=== PATIENT | male | born 2005 | race Two or more races ===

== ENCOUNTER 2024-04-07 22:25 | Emergency (ER) | payer OTHER ==
[~2024-04-07] VITALS: Ht 162.6 cm; Wt 63.5 kg
[2024-04-07 23:00] VITALS: TEMP 98.6
[2024-04-07 23:36] VITALS: BP 118/77; O2SAT 98
== END 2024-04-07 23:40 | disposition home or self-care (01) ==
LOC: ER 22:37
DX: F07.81 Postconcussional syndrome (principal); R51.9 Headache, unspecified
CPT/HCPCS: 70450-TC

== ENCOUNTER 2024-04-15 22:41 | Emergency (ER) | payer OTHER ==
[~2024-04-15] VITALS: Ht 182.9 cm; Wt 71.2 kg
[2024-04-15] MEDS ORDERED: IBUPROFEN 400 MG TABLET ONE (23:16)
[2024-04-15] MEDS: IBUPROFEN 400 MG TABLET PO ONE (23:19)
[2024-04-15 23:29] LABS: BASOPHILS % (AUTO) 0.6 % (0.0-2.0); EOSINOPHILS # (AUTO) 0.1 K/uL (0.0-0.7); EOSINOPHILS % (AUTO) 2.2 % (0.0-6.0); HEMATOCRIT 44 % (39-51); HEMOGLOBIN 14.9 g/dL (13.5-17.5); LYMPHOCYTES # (AUTO) 1.8 K/uL (0.8-4.8); LYMPHOCYTES % (AUTO) 30.9 % (20.0-44.0); MEAN CORPUSCULAR HEMOGLOBIN 30 PG (26.0-33.0); MEAN CORPUSCULAR HGB CONC 34 g/dl (31.0-36.0); MEAN CORPUSCULAR VOLUME 89 fL (80-96); MONOCYTES # (AUTO) 0.5 K/uL (0.1-1.30); NEUTROPHILS # (AUTO) 3.3 K/uL (1.8-8.9); NEUTROPHILS % (AUTO) 58.3 % (43.0-81.0); PLATELET COUNT (AUTO) 191 K/uL (150-450); RED BLOOD CELL COUNT(AUTO) 4.89 MIL/uL (4.5-6.0); WHITE BLOOD COUNT (AUTO) 5.7 K/uL (4.3-11.0)
[2024-04-15 23:59] LABS: D-DIMER < 0.19 mg/L(FEU (0.17-0.50); INR 0.99 (0.91-1.10); PARTIAL THROMBOPLASTIN TIME 29.7 SEC (24.3-34.3); PROTHROMBIN TIME 10.5 SECS (9.2-11.1)
[2024-04-16 00:04] LABS: CALCIUM, SERUM 8.9 mg/dL (8.5-10.1); CARBON DIOXIDE 27 mmol/L (21-32); CHLORIDE 106 mmol/L (98-107); CREATININE 0.7 mg/dL (0.6-1.3); GLUCOSE 97 mg/dL (74-106); SODIUM SERUM 142 mmol/L (136-145); UREA NITROGEN, BLOOD 16 mg/dL (7-18)
[2024-04-16 00:23] LABS: ALANINE AMINOTRANSFERASE 13 U/L (12-78); ALKALINE PHOSPHATASE 122 U/L (46-116); ASPARTATE AMINOTRANSFERASE 5 U/L (15-37); BILIRUBIN,DIRECT 0.2 mg/dL (0.0-0.2); TOTAL PROTEIN, SERUM 7.3 g/dL (6.4-8.2)
[2024-04-16 00:45] VITALS: BP 103/64; TEMP 98; O2SAT 100
== END 2024-04-16 00:46 | disposition home or self-care (01) ==
LOC: ER 22:50
DX: R07.9 Chest pain, unspecified (principal); Z88.8 Allergy status to other drugs, medicaments and biological substances; Z60.2 Problems related to living alone
CPT/HCPCS: 36415; 71045-TC; 80048-TC; 80076-TC; 84484-TC; 85025-TC; 85378-TC; 85730-TC

== ENCOUNTER 2024-09-17 07:23 | Inpatient (IN) | payer OTHER ==
[~2024-09-17] VITALS: Ht 182.9 cm; Wt 70.3 kg
[2024-09-17] MEDS ORDERED: ACETAMINOPHEN 325 MG TABLET ONE (07:52)
[2024-09-17] MEDS ORDERED: KETOROLAC TROMETHAMINE 15 MG/ML VIAL ONE (07:52)
[2024-09-17] MEDS: IV NS 0.9% 1,000 ML BAG IV ONE ×2 (08:04→11:11)
[2024-09-17] MEDS: KETOROLAC TROMETHAMINE 15 MG/ML VIAL IV ONE (08:06)
[2024-09-17] MEDS: ACETAMINOPHEN 325 MG TABLET PO ONE (08:06)
[2024-09-17 08:12] LABS: BASOPHILS % (AUTO) 0.4 % (0.0-2.0); EOSINOPHILS # (AUTO) 0.1 K/uL (0.0-0.7); EOSINOPHILS % (AUTO) 1.3 % (0.0-6.0); HEMATOCRIT 47 % (39-51); LYMPHOCYTES # (AUTO) 1.3 K/uL (0.8-4.8); LYMPHOCYTES % (AUTO) 20.4 % (20.0-44.0); MEAN CORPUSCULAR HEMOGLOBIN 30 PG (26.0-33.0); MEAN CORPUSCULAR HGB CONC 34 g/dl (31.0-36.0); MEAN CORPUSCULAR VOLUME 90 fL (80-96); MONOCYTES # (AUTO) 0.5 K/uL (0.1-1.30); MONOCYTES % (AUTO) 7.9 % (2.0-12.0); NEUTROPHILS # (AUTO) 4.6 K/uL (1.8-8.9); PLATELET COUNT (AUTO) 215 K/uL (150-450); RED BLOOD CELL COUNT(AUTO) 5.28 MIL/uL (4.5-6.0); RED CELL DISTRIBUTION WIDTH 13.5 % (11.5-15.0); WHITE BLOOD COUNT (AUTO) 6.5 K/uL (4.3-11.0)
[2024-09-17 08:29] LABS: CALCIUM, SERUM 9.1 mg/dL (8.5-10.1)
[2024-09-17 09:00] LABS: APPEARANCE,URINE CLEAR (CLEAR); BILIRUBIN,URINE NEGATIVE (NEGATIVE); BLOOD, URINE NEGATIVE Ery/uL (NEGATIVE); COLOR,URINE YELLOW (YELLOW); KETONES,URINE NEGATIVE (NEGATIVE); LEUKOCYTE ESTERASE ,URINE NEGATIVE (NEGATIVE); NITRITE, URINE NEGATIVE (NEGATIVE); PROTEIN,URINE NEGATIVE (NEGATIVE); UGLUCOSE NEGATIVE (NEGATIVE); UROBILINOGEN,URINE 0.2 EU/dL (0.2)
[2024-09-17] MEDS ORDERED: MAGNESIUM HYDROXIDE 30 ML UDC PO PRN (12:00)
[2024-09-17] MEDS ORDERED: ACETAMINOPHEN 325 MG TABLET PO PRN (12:00)
[2024-09-17] MEDS ORDERED: MAG HYDROX/AL HYDROX/SIMETH 30 ML UDC PO PRN (12:00)
[2024-09-17] MEDS ORDERED: ONDANSETRON HCL/PF 4 MG/2 ML VIAL IVP PRN (12:00)
[2024-09-17] MEDS ORDERED: Z GUARD REMEDY 4 OZ OINT TP PRN (12:00)
[2024-09-17] MEDS ORDERED: ZOLPIDEM TARTRATE 5 MG TABLET PO PRN (12:00)
[2024-09-17] MEDS ORDERED: ESCI20TA PO (12:29)
[2024-09-17 13:50] VITALS: BP 118/63; TEMP 96.8; O2SAT 98
[2024-09-17] MEDS: IV 1/2NS 1000 ML 1,000 ML IV PRN (15:40)
[2024-09-17 16:00] VITALS: BP 116/68; TEMP 97.4; O2SAT 98
[2024-09-17 20:00] VITALS: BP 131/67; TEMP 97.5; O2SAT 99
[2024-09-17 22:11] VITALS: BP 131/67; TEMP 97.5; O2SAT 99
[2024-09-18 07:41] LABS: BASOPHILS % (AUTO) 0.4 % (0.0-2.0); EOSINOPHILS # (AUTO) 0.1 K/uL (0.0-0.7); HEMATOCRIT 44 % (39-51); HEMOGLOBIN 14.8 g/dL (13.5-17.5); LYMPHOCYTES # (AUTO) 1.4 K/uL (0.8-4.8); LYMPHOCYTES % (AUTO) 26.2 % (20.0-44.0); MEAN CORPUSCULAR HEMOGLOBIN 30 PG (26.0-33.0); MEAN CORPUSCULAR HGB CONC 34 g/dl (31.0-36.0); MEAN CORPUSCULAR VOLUME 89 fL (80-96); MONOCYTES # (AUTO) 0.4 K/uL (0.1-1.30); MONOCYTES % (AUTO) 7.6 % (2.0-12.0); NEUTROPHILS # (AUTO) 3.4 K/uL (1.8-8.9); NEUTROPHILS % (AUTO) 63.8 % (43.0-81.0); PLATELET COUNT (AUTO) 205 K/uL (150-450); RED CELL DISTRIBUTION WIDTH 13.4 % (11.5-15.0); WHITE BLOOD COUNT (AUTO) 5.3 K/uL (4.3-11.0)
[2024-09-18 07:53] LABS: CALCIUM, SERUM 8.7 mg/dL (8.5-10.1); CREATININE 0.7 mg/dL (0.6-1.3); POTASSIUM 4.6 mmol/L (3.5-5.1)
[2024-09-18 08:00] VITALS: BP 109/70; TEMP 97.7; O2SAT 97
[2024-09-18] MEDS: ESCITALOPRAM OXALATE (10 MG) 10 MG TABLET PO SCH (08:54)
[2024-09-18] MEDS ORDERED: IV 1/2NS 1000 ML 1,000 ML IV PRN (10:53)
[2024-09-18] MEDS: IV NS 0.9% 1,000 ML IV ONE (11:18)
[2024-09-18] MEDS: IV NS 0.9% 1,000 ML IV PRN (12:35)
[2024-09-18 16:00] VITALS: BP 129/69; TEMP 97.9; O2SAT 100
[2024-09-18 20:00] VITALS: BP 125/67; TEMP 97.9; O2SAT 97
[2024-09-19 08:00] VITALS: BP 101/56; TEMP 97.5; O2SAT 99
[2024-09-19 16:00] VITALS: BP 127/68; TEMP 98.4; O2SAT 96
[2024-09-19 20:00] VITALS: BP 145/68; TEMP 97.3; O2SAT 98
[2024-09-20 07:30] VITALS: BP 114/69; TEMP 97.7; O2SAT 99
[2024-09-20 16:00] VITALS: BP 127/35; TEMP 98.1; O2SAT 100
[2024-09-20 20:00] VITALS: BP 143/77; TEMP 97.5; O2SAT 96
[2024-09-21 07:00] VITALS: BP 114/69; TEMP 97.7; O2SAT 96
[2024-09-21 07:45] LABS: BASOPHILS % (AUTO) 0.3 % (0.0-2.0); EOSINOPHILS # (AUTO) 0.2 K/uL (0.0-0.7); EOSINOPHILS % (AUTO) 3.2 % (0.0-6.0); HEMATOCRIT 44 % (39-51); HEMOGLOBIN 14.7 g/dL (13.5-17.5); LYMPHOCYTES # (AUTO) 1.2 K/uL (0.8-4.8); LYMPHOCYTES % (AUTO) 20.9 % (20.0-44.0); MEAN CORPUSCULAR HEMOGLOBIN 30 PG (26.0-33.0); MEAN CORPUSCULAR HGB CONC 34 g/dl (31.0-36.0); MEAN CORPUSCULAR VOLUME 89 fL (80-96); MONOCYTES # (AUTO) 0.4 K/uL (0.1-1.30); MONOCYTES % (AUTO) 7.5 % (2.0-12.0); NEUTROPHILS # (AUTO) 3.9 K/uL (1.8-8.9); NEUTROPHILS % (AUTO) 68.1 % (43.0-81.0); PLATELET COUNT (AUTO) 195 K/uL (150-450); RED CELL DISTRIBUTION WIDTH 13.6 % (11.5-15.0); WHITE BLOOD COUNT (AUTO) 5.7 K/uL (4.3-11.0)
[2024-09-21 08:10] LABS: CALCIUM, SERUM 8.6 mg/dL (8.5-10.1); CREATININE 0.7 mg/dL (0.6-1.3); POTASSIUM 4.5 mmol/L (3.5-5.1)
== END 2024-09-21 13:15 | disposition home or self-care (01) | DRG 351 ==
LOC: ER 07:31 → MED 12:54
PROVIDERS: ADMIT Internal Medicine; ATTEND Nurse Practitioner Acute Care
DX: M62.82 Rhabdomyolysis (principal); F32.A Depression, unspecified; Z88.0 Allergy status to penicillin
CPT/HCPCS: 36415; 80048-TC; 82550-TC; 82553; 85025-TC; A4223; A6253; G0378; J1885; J3490; J7030

== ENCOUNTER 2025-01-05 02:14 | Emergency (ER) | payer OTHER ==
[~2025-01-05] VITALS: Ht 182.9 cm; Wt 81.6 kg
[~2025-01-05 02:14] MED LIST: ESCI20TA PO
[2025-01-05] MEDS ORDERED: HYDROCODONE/APAP 5/325MG TABLET ONE (04:26)
[2025-01-05] MEDS: HYDROCODONE/APAP 5/325MG TABLET PO ONE (04:28)
[2025-01-05] MEDS ORDERED: ETOMIDATE 2 MG/ML VIAL ONE (06:38)
[2025-01-05] MEDS: ETOMIDATE 2 MG/ML VIAL IV ONE (06:39)
[2025-01-05] MEDS ORDERED: LORAZEPAM INJ 2 MG/ML VIAL ONE (06:50)
[2025-01-05] MEDS: LORAZEPAM INJ 2 MG/ML VIAL IV ONE (07:31)
[2025-01-05 13:22] VITALS: BP 134/70; TEMP 98.5; O2SAT 100
== END 2025-01-05 13:24 | disposition home or self-care (01) ==
LOC: ER 02:18
DX: S03.02XA Dislocation of jaw, left side, initial encounter (principal); Z79.899 Other long term (current) drug therapy; Z88.0 Allergy status to penicillin; X58.XXXA Exposure to other specified factors, initial encounter; Y93.9 Activity, unspecified; Y92.9 Unspecified place or not applicable; Y99.8 Other external cause status; Z60.2 Problems related to living alone
CPT/HCPCS: 99285; 21480; 96374; 70486; 99152; J2060; J3490; G0500